=== PATIENT | male | born 1995 ===

== ENCOUNTER 2022-07-07 10:31 | Outpatient (CLI) | payer SELFPAY | END 2022-07-07 10:32 | disposition EMS.NT | LOC: EMS 10:31 | DX: R11.10 Vomiting, unspecified (principal) ==

== ENCOUNTER 2022-09-05 09:15 | Outpatient (CLI) | payer OTHER ==
[2022-09-05 09:56] VITALS: BP 102/62
--- NOTE | 2022-09-05 09:57 | SLEEP CARE CONSULTATION ---
Information from patient questionnaire entered by Annia Lafleur. I have reviewed and concur with the information entered by Annia Lafleur. This document represents the service I personally performed and the decisions made by me, Kyra Leon ARNP. History of Present Illness Service Date and Time: 09/05/2022 0915 Reason for Visit: New patient Chief Complaint: reports: Insomnia, Unrefreshed sleep, Snoring, Excessive daytime sleepiness, Observed pauses in breathing, Fatigue, Frequent awakenings at night Date of Onset: 8 years Usual bedtime: [id number], but won't fall asleep for hours Time it takes to fall asleep: 3-5 hours Snores at night: Yes Observed to quit breathing while asleep: Yes Sleeps alone due to snoring: No Number of times waking at night: 1-6 times Reasons for waking at night: reports: Choking, Snoring, Gasping for air, Bathroom, Other (noise) Toss, Turn, or Twitch while sleeping: Yes Recalls having dreams: No Usually gets out of bed at: [id number] Feels refreshed in the morning: No Morning headache: Yes (after 1-2 hours; 4-5 times a week) Sleepy or fatigued during the day: Yes Ever fallen asleep while driving: Yes (drowsy driving, no accidents) Takes day naps: No Dreams during day naps: No Prior sleep studies: Yes Year and Where: 2016, 2020 in May; [place], [place] Additional HPI information: I had the pleasure of seeing JESSICA MARTIN today regarding the possibility of him having a sleep disorder. His current complaints are excessive daytime sleepiness, fatigue, frequent night awakenings, insomnia, observed pauses in breathing, snoring and unrefreshed sleep. He has had a sleep study twice, once in 2016 and more recently in 05/2021 in [place]. He was diagnosed with moderate obstructive sleep apnea (15.1 AHI seen on records on phone in office) and insomnia. He was not ever able to get a CPAP machine. He was transferred here in February 2022 with the [facility] and then referred here for help with getting a CPAP. He states he has been trying to get a CPAP machine for years. - Parasomnia Symptoms Ever been unable to move upon waking from sleep: No Walks in sleep: No Talks in sleep: No Ever acted out dreams in sleep: No Ever felt weak in the knees when startled or emotional: No Bothered by creepy, crawly, restless sensations in legs: No Problems with memory or concentration: Yes Subjective Initial [place] Sleepiness Scale score: 19 (08/2022) Past Medical History Past Medical History: reports: Anxiety, Attention deficit Social History The patient's occupation is a AM. Patient is and lives in . Have you smoked in the past 12 months: Yes Cigarettes per day (20/pack): 3 Years of smokin (2 months) Smoking Pack Years: 0 Alcohol use: Yes Alcohol amount and frequency: 1 drink every other month Caffeine use: Yes Caffeine amount and frequency: 1-3 drinks each week Family History Family history of sleep disordered breathing: Yes Family Hx Sleep Apnea: Mother: Snoring, Father: Snoring, Sibling: Snoring Allergies and Home Medications Drug allergies reviewed: Yes (NKDA) Home medication list reviewed: Yes Allergy and home medication list: Medications: Adderall 10 mg in AM, 5 mg in afternoon (not after noon) Melatonin 6-8 mg, prn Review of Systems Weight loss over past 5 years: 35 lbs in last 2 months Cardiovascular: reports: high blood pressure Gastrointestinal: reports: heartburn Psychiatric: reports: Attention Deficit Hyperactivity, anxiety Ear/Nose/Throat: reports: wisdom teeth removed. denies: tonsillectomy Musculoskeletal: reports: joint pain Physical Exam Vital signs obtained and entered by: ANNIA Truong MA Blood Pressure: 102/62 (LEFT ARM) Cuff size: regular Heart Rate: 52 O2 Saturation: 100 Height: 5 ft 7 in Weight: 146 lb 12.8 oz Body Mass Index: 23.0 BMI Classification: Normal Neck circumference: 14.75 (inches) Mouth and throat: narrow oropharynx Soft palate: long Hard palate: normal Uvula: normal Uvula visualization: 25% Mallampati Class III Tongue: enlarged in size with teeth hernandez on lateral edges Tonsils: 1+ Neck: normal w/o lymphadenopathy or thyromegaly Heart: regular rate and rhythm Lungs: clear bilaterally Impression and Plan 1. Suspected Obstructive Sleep Apnea-Hypopnea Syndrome, as previously diagnosed and as suggested by a history of loud and irregular snoring, observed cessation of breath while asleep, gasping or choking in sleep, morning headache, frequent awakening during the night, unrefreshed sleep, cognitive impairment, and excessive daytime sleepiness. Narrow oropharynx and obesity are common predisposing factors for obstructive sleep apnea-hypopnea syndrome. I recommend proceeding to polysomnography to confirm the diagnosis and to assess severity. If the patient has significant sleep disordered breathing, a manual CPAP titration study will also be performed to find the optimal treatment pressure. I informed the patient of what the sleep studies involve and after some discussion, obtained agreement to proceed. The pathophysiology of obstructive sleep apnea-hypopnea syndrome was discussed with the patient and health risks of cardiovascular and cerebrovascular disease if not treated. Risks of drowsy driving discussed in detail and patient advised to avoid long distance driving and to casing puller at the first sign of drowsiness. Patient agreed to plan. * Schedule polysomnography * Avoid long distance driving or driving when feeling sleepy. * Avoid alcohol, sedative and muscle relaxant around bedtime. * Attempt to lose weight. * Review instructions provided by trained office staff on how to prepare for the sleep study. * Return for follow-up after sleep study completed. Counseling Topics: Weight control Visit Type: In Office Time Spent with Patient (minutes): 31 Provider Statement: I spent 100% of the Face to Face Visit with the patient with greater than 50% spent counseling the patient and coordination of care.
== END 2022-09-05 09:16 | disposition home or self-care (01) ==
LOC: SC 09:15
PROVIDERS: ATTEND Nurse Practitioner Family
DX: R06.83 Snoring (principal); G47.8 Other sleep disorders; R06.81 Apnea, not elsewhere classified; R51.9 Headache, unspecified; G47.10 Hypersomnia, unspecified; R53.83 Other fatigue; F98.8 Other specified behavioral and emotional disorders with onset usually occurring in childhood and adolescence; F17.210 Nicotine dependence, cigarettes, uncomplicated
CPT/HCPCS: 99203; 99212

== ENCOUNTER 2022-10-02 12:48 | Outpatient (CLI) | payer OTHER | END 2022-10-02 12:49 | disposition home or self-care (01) | LOC: SC 12:48 | PROVIDERS: ATTEND Nurse Practitioner Family | DX: G47.33 Obstructive sleep apnea (adult) (pediatric) (principal); R09.02 Hypoxemia | CPT/HCPCS: 95806 ==

== ENCOUNTER 2022-11-19 12:47 | Outpatient (CLI) | payer OTHER ==
[2022-11-19 13:22] VITALS: BP 112/62
--- NOTE | 2022-11-19 13:22 | SLEEP CARE CONSULTATION ---
Information from patient questionnaire entered by Annia Lafleur. I have reviewed and concur with the information entered by Annia Lafleur. This document represents the service I personally performed and the decisions made by me, Kyra Leon ARNP. History of Present Illness Service Date and Time: 11/19/2022 1247 Initial [place] Sleepiness Scale score: 19 (08/2022) Current [place] Sleepiness Scale score: 13 (11/19/22) Additional HPI information: JESSICA MARTIN returns for follow up and results of the recently performed home sleep study. I explained the pathophysiology behind obstructive sleep apnea. We then spent quite a bit of time discussing different treatment options. For mild obstructive sleep apnea, surgery and oral appliance are alternatives to nasal CPAP therapy but in moderate or severe cases, nasal CPAP is the most effective and reliable treatment. Because apnea is primarily in supine position, then positional management therapy could be effective. Methods discussed such as positioning with pillows to prevent supine sleep. I reviewed the impact of weight changes on sleep apnea and strongly recommended losing weight. After some discussion, the patient opted to go with the nasal CPAP therapy. I explained how CPAP machine works and what to expect when using the machine. Using CPAP every night in order to get used to it was emphasized. Patient advised to put CPAP mask on before getting into bed so as not to fall asleep without CPAP. To assist acclimation to CPAP use, it could also be used for a short time during day while reading or watching TV. The patient was instructed to call the CPAP supplier to discuss any mechanical problem that may occur. If the mask given is uncomfortable or is difficult to keep on through the night even with adjustment, contact the CPAP supplier as many will replace with another mask style if notified before 30 days. If snoring or perceives is not getting enough air or too much air from the machine, notify this office. Patient does not drink alcohol. Patient was cautioned about risks of drowsy driving until sleepiness symptoms resolve. Patient denies drowsy driving. Sleep Study - Results Type of Sleep Study: Home sleep study (COMPLETED 10/02/23) Prior sleep studies: Yes Year and Where: 2016, 2020 in May; [place], [place] Polysomnography/Home Sleep Study results: Physician Impression: The quality of the study is good. The length of the study is adequate (> 240 minutes). Please also see the tabulated and graphic data. 1. Obstructive Sleep Apnea-Hypopnea (ICD-10 G47.33), mild, with an AHI of 7.3/hr and whit SaO2 of 84%. During the study, the patient had 45 apneas (44 obstructive, 1 central, 0 mixed) and 8 hypopneas. The longest episode lasted 61.5 seconds. The patient slept almost exclusively in supine position (supine AHI was 7.6 and non-supine, 4.47). 2. Hypoxemia (ICD-10 R09.02), minimal, with the lowest oxygen saturation of 84 % and 0.5 minutes with SaO2 under 90%. Baseline oxygen saturation was normal (Average oxygen saturation was 96%). Allergies and Home Medications Drug allergies reviewed: Yes (NKDA) Home medication list reviewed: Yes (no changes) Review of Systems Review of systems same as previous: Yes (no changes) Physical Exam Vital signs obtained and entered by: ANNIA Truong MA Blood Pressure: 112/62 (LEFT ARM) Cuff size: regular Heart Rate: 86 O2 Saturation: 97 Height: 5 ft 7 in Weight: 157 lb Body Mass Index: 24.5 BMI Classification: Normal Impression and Plan 1. Obstructive Sleep Apnea-Hypopnea Syndrome, mild, with lowest oxygen saturation of 84%. Obviously this is the cause of the patients symptoms of unrefreshed sleep, and excessive daytime sleepiness. Positive pressure therapy could benefit anxiety and attention deficit. As mentioned above, the patient will be started on nasal autoCPAP therapy. He was issued a ResMed Airsense 11 CPAP from [facility] probably by his doctor on the [employer] [place]. I do not have the pressure settings at this time but it is probably set for an APAP trial. Compliance guidelines also reviewed. A copy of compliance guidelines will be given for reference at check out. I will have him start using his CPAP tonight and followup with him in about a month to check compliance and adjust pressure as needed. He will let me know if the pressure is uncomfortable for adjustment as needed. * Nasal auto CPAP therapy, unknown cm H2O. * Avoid alcohol consumption near bedtime. * Avoid supine sleep until using CPAP. * The patient is again cautioned about driving until sleepiness completely resolves. * Return in 1-2 months. I will assess response to therapy and compliance at that time. Visit Type: In Office Time Spent with Patient (minutes): 20 Provider Statement: I spent 100% of the Face to Face Visit with the patient with greater than 50% spent counseling the patient and coordination of care.
== END 2022-11-19 12:48 | disposition home or self-care (01) ==
LOC: SC 12:47
PROVIDERS: ATTEND Nurse Practitioner Family
DX: G47.33 Obstructive sleep apnea (adult) (pediatric) (principal)
CPT/HCPCS: 99212; 99213

== ENCOUNTER 2022-12-27 12:46 | Outpatient (CLI) | payer OTHER ==
[2022-12-27 13:22] VITALS: BP 110/70
--- NOTE | 2022-12-27 13:22 | SLEEP CARE CONSULTATION ---
Information from patient questionnaire entered by Annia Lafleur. I have reviewed and concur with the information entered by Annia Lafleur. This document represents the service I personally performed and the decisions made by me, Kyra Leon ARNP. History of Present Illness Service Date and Time: 12/27/2022 1246 Previous diagnosis: Mild, Obstructive Sleep Apnea-Hypopnea Syndrome AHI: 7.3 (in 2021) Reason for follow up: first compliance (NEED PT SD CAR AND OR MACHINE) Accompanied by: child Equipment type: CPAP Equipment obtained from: Other ([facility], getting supplies) Mask style: Full face (Leif) Backup mask available: No (will keep old mask when replaced) Last cushion change: 1 month Prior sleep studies: Yes Year and Where: 2020 in May; [place], [place] Type of Sleep Study: Home sleep study (COMPLETED 10/02/23) HPI additional information: JESSICA MARTIN was diagnosed to have mild, AHI 7.3, obstructive sleep apnea-hypopnea syndrome and returned today for CPAP therapy first compliance follow-up. Sleep Study - Results Type of Sleep Study: Home sleep study (COMPLETED 10/02/23) Prior sleep studies: Yes Year and Where: 2020 in May; [place], [place] CPAP Compliance Data - Data Reviewed with Patient Average duration of nightly device use: 2:12 hours Compliance rate %: 0 (0) Current pressure setting (cmH2O): 4-20 (avg 9.0) Average residual AHI: 3 Subjective Missed days of use due to: reports: other (insomnia and headaches) Patient concerns: reports: nasal congestion, dry mouth, nose, throat, other (headaches). denies: aerophagia, mask discomfort, air blowing in eyes, mask leak noise, condensation in mask/hose Observed to snore while using device: No Current pressure setting perceived as: too high On therapy, patient: reports: other (has not been able to use enough to tell a difference) Initial [place] Sleepiness Scale score: 19 (08/2022) Current [place] Sleepiness Scale score: 9 (12/27/22) Allergies and Home Medications Known drug allergies: No Drug allergies reviewed: Yes Home medication list reviewed: Yes (no changes) Review of Systems Review of systems same as previous: Yes (no changes) Physical Exam Vital signs obtained and entered by: ANNIA Truong MA Blood Pressure: 110/70 (LEFT ARM) Cuff size: regular Heart Rate: 88 O2 Saturation: 97 Height: 5 ft 7 in Weight: 153 lb 12.8 oz Body Mass Index: 24.0 BMI Classification: Normal Impression and Plan 1. Obstructive Sleep Apnea-Hypopnea Syndrome, mild, with poor treatment compliance and good apnea control. On CPAP therapy, the patient has not been able to use the device enough to notice a difference. He had had difficulty with being unable to breathe thru his nose in the mask and the pressure feels "too much". He does however feel the mask is comfortable. The patients pressure will be changed to autoCPAP 7-9 cmH20 to reflect pressure being used. And I will increase ramp starting pressure to 6 cmH2O to increase comfort. Patient advised to contact me if pressure change is uncomfortable so that it can be adjusted. Goals for apnea control discussed. Patient's apnea severity and rationale for treatment to reduce apnea, improve sleep quality and reduce cardiovascular and cerebrovascular events was reviewed. I also reviewed the benefit of consistent device use of CPAP for anxiety and attention deficit. * Increase ramp starting pressure to 6 cmH2O * Change auto CPAP pressure to 7-9 cmH2O * Notify me if snoring with mask or feeling that the pressure is too much or too little * Maintain healthy weight * Call this office if any problems using CPAP * Return for follow up in 1-2 months or sooner if concerns arise Counseling Topics: Spare mask Visit Type: In Office Time Spent with Patient (minutes): 20 Provider Statement: I spent 100% of the Face to Face Visit with the patient with greater than 50% spent counseling the patient and coordination of care.
== END 2022-12-27 12:47 | disposition home or self-care (01) ==
LOC: SC 12:46
PROVIDERS: ATTEND Nurse Practitioner Family
DX: G47.33 Obstructive sleep apnea (adult) (pediatric) (principal)
CPT/HCPCS: 99212; 99213